=== PATIENT | female | born 1990 | race Asian ===

== ENCOUNTER 2016-04-27 09:28 | Emergency (ER) | payer SELFPAY ==
[~2016-04-27] VITALS: Ht 157.5 cm; Wt 99.0 kg
[~2016-04-27 09:28] MED LIST: FERR240T9 PO; PREN1TAB62 PO
[2016-04-27 09:43] VITALS: Ht 157.5 cm; Wt 99.0 kg
[2016-04-27] MEDS ORDERED: ONDANSETRON (ODT) 4 MG TAB ODT STA (11:04)
[2016-04-27] MEDS ORDERED: HYDROCODONE/APAP (5/325) TAB PO ONE (11:30)
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
[2016-04-27 11:37] LABS: URINE BLOOD (Dip) POC Negative (NEGATIVE)
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
--- NOTE | 2016-04-27 12:41 | RADRPT ---
PROCEDURE: XR Cervical Spine. CLINICAL INDICATION: Neck pain TECHNIQUE: Three views of the cervical spine were performed. COMPARISON: None. FINDINGS: The cervical vertebral bodies are normal in mineralization, architecture and alignment. No fracture or osseous lesion is identified. No subluxation is demonstrated. The disk spaces are unremarkable. The uncinate joints are unremarkable. The facet joints are unremarkable. No soft tissue abnormal ity is identified. IMPRESSION: Unremarkable cervical spine. RPTAT: HGDB .Oneil Gabriel MD, MD Date Time Electronically viewed and signed by .Oneil Gabriel MD, on 04/27/2016 12:40 .B/
--- NOTE | 2016-04-27 12:41 | RADRPT ---
PROCEDURE: XR left wrist. CLINICAL INDICATION: Wrist pain TECHNIQUE: Three views are available for review. COMPARISON: No prior studies are available for comparison. FINDINGS: The osseous structures are normal in mineralization, architecture and alignment. No fracture or oss eous lesion is identified. The joints are unremarkable. The soft tissues are unremarkable. IMPRESSION: Unremarkable examination. RPTAT: HGDB .Oneil Gabriel MD, MD Date Time Electronically viewed and signed by .Oneil Gabriel MD, on 04/27/2016 12:41 .B/
[2016-04-27] MEDS ORDERED: HYDR-906 PO (12:45)
[2016-04-27] MEDS ORDERED: ONDA8TAB14 PO (12:45)
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
[2016-04-27 13:15] VITALS: BP 118/65; PULSE 75; RESP 18; TEMP 98.1
== END 2016-04-27 13:15 | disposition home or self-care (01) ==
LOC: FTE 09:28
DX: S13.9XXA Sprain of joints and ligaments of unspecified parts of neck, initial encounter (principal); S33.5XXA Sprain of ligaments of lumbar spine, initial encounter; S39.91XA Unspecified injury of abdomen, initial encounter; R11.0 Nausea; V89.2XXA Person injured in unspecified motor-vehicle accident, traffic, initial encounter
CPT/HCPCS: 72040; 72100; 76705; 81003